=== PATIENT | male | born 1990 | race Caucasian/White ===

== ENCOUNTER 2020-03-27 11:24 | Emergency (ER) | payer OTHER, SELFPAY ==
[2020-03-27 11:37] VITALS: BP 136/77; PULSE 108; RESP 16; TEMP 36.6; O2SAT 98
--- NOTE | 2020-03-27 11:57 | ED.URI ---
HPI - URI/Sore Throat General Chief Complaint: Upper Respiratory Infection Stated Complaint: sinus infection Time Seen by Provider: 03/27/20 11:51 Source: patient and RN notes reviewed Mode of arrival: ambulatory Limitations: no limitations History of Present Illness HPI Narrative: Patient presents today complaining of a 9-hour history of green nasal discharge, nasal congestion, and sinus pressure. Denies fever, cough, sore throat, ear pain. He took 1 dose of ibuprofen without relief. MD elicited complaint: nasal congestion and sinus pain Related Data Allergies Allergy/AdvReac Type Severity Reaction Status Date / Time No Known Allergies Allergy Verified 03/27/20 11:47 Review of Systems Review of Systems: Narrative: CONSTITUTIONAL: Denies body aches, fever, chills, or sweats. EYES: Denies visual changes, redness, or discharge. ENT: Denies rhinorrhea, sore throat, or otalgia. + Congestion, sinus pressure, green nasal drainage CARDIOVASCULAR: Denies chest pain, palpitations, or edema. RESPIRATORY: Denies cough or dyspnea. GASTROINTESTINAL: Denies abdominal pain, nausea, vomiting, or diarrhea. GENITOURINARY: Denies dysuria or hematuria. SKIN: Denies rash, itching, or wounds. MUSCULOSKELETAL: Denies back pain, joint pain, or myalgia. NEUROLOGIC: Denies headache, numbness, tingling, or weakness. PSYCH: Denies depression or anxiety. [facility] Social History Social History (Updated 11/17/19 @ 10:18 by Sherly Negron [facility]) Smoking status: Current every day smoker Tobacco type: cigarettes Additional smoking assessment comments: Smokes 1 and 1/2 packs a day Alcohol intake: current Drinks per week: 2 Substance use: current Substance use type: crack/cocaine Gender identity (if verbalized by the patient): Male Comments At time of signature, I have reviewed and agree with nursing past medical, surgical, social and family history unless otherwise noted. Please see nursing chart for further information. There is no relevant family history pertinent to the presenting complaint Exam Narrative: Exam Narrative: GENERAL: Well-appearing, well-nourished, and in no acute distress. HEAD: Normocephalic, atraumatic. EYES: EOMI. No redness or drainage. Conjunctivae normal. ENT: Mucous membranes pink and moist. Nares congested. Purulent nasal discharge in bilateral anterior nares. Unable to visualize the turbinates due to thick nasal drainage. No rhinorrhea. TMs normal bilaterally. Throat normal. Uvula midline. NECK: Normal AROM. Supple. No lymphadenopathy. CHEST: No respiratory distress. Clear to auscultation. HEART: Regular rate and rhythm. No murmur appreciated. Normal peripheral pulses. EXTREMITIES: Normal range of motion. No edema. SKIN: Warm, dry, no rash. Capillary refill normal. Normal skin turgor. NEURO: No focal deficits. Alert and oriented x3. Gait steady. PSYCH: Normal affect. No signs of depression or anxiety. Course Vital Signs Vital signs: Vital Signs Temperature 97.8 F 03/27/20 11:37 Pulse Rate 108 H 03/27/20 11:37 Respiratory Rate 16 03/27/20 11:37 Blood Pressure 136/77 03/27/20 11:37 Pulse Oximetry 98 03/27/20 11:37 Temperature 97.8 F 03/27/20 11:37 Pulse Rate 108 H 03/27/20 11:37 Respiratory Rate 16 03/27/20 11:37 Blood Pressure 136/77 03/27/20 11:37 Pulse Oximetry 98 03/27/20 11:37 Reviewed. Pt has been instructed to follow up with his PCP regarding his elevated blood pressure today. MDM - URI/Sore Throat Differential Diagnosis Differential diagnosis: Likely upper respiratory infection, otitis media, sinusitis and viral infection Critical Care Time Critical Care Time Critical Care Time: No Discharge Plan Discharge Clinical Impression: Viral sinusitis Patient Disposition: Home, Self-Care Condition: Stable Instructions: Sinusitis (ED), Allergies (ED) Additional Instructions: Your symptoms are likely due to a viral illness, which is not t
== END 2020-03-27 12:06 | disposition home or self-care (01) ==
PROVIDERS: Emergency Provider Nurse Practitioner; PCP Internal Medicine
DX: J32.9 Chronic sinusitis, unspecified (principal); B97.89 Other viral agents as the cause of diseases classified elsewhere; F17.210 Nicotine dependence, cigarettes, uncomplicated; R03.0 Elevated blood-pressure reading, without diagnosis of hypertension
CPT/HCPCS: 99213; G0463